=== PATIENT | female | born 1980 | race Asian ===

== ENCOUNTER 2020-06-12 19:11 | Emergency (ER) | payer BC ==
[~2020-06-12] VITALS: Ht 157.5 cm; Wt 56.4 kg
--- NOTE | 2020-06-12 19:53 | NUR ---
PT STATES HAVING SOME PALPITATIONS AND INDIGESTION SINCE HAVING CHEST PAIN A FEW DAYS AGO ACCOMPANIED BY SOME HTN. ACS PROTOCOL ORDERED
[2020-06-12 19:56] LABS: URINE HCG NEGATIVE (NEG)
[2020-06-12 19:57] LABS: CLARITY,URINE CLEAR (Clear); GLUCOSE, URINE NEGATIVE (Neg); KETONES,URINE NEGATIVE (Neg); LEUKOCYTE ESTERASE ,URINE TRACE (Neg); NITRITES, URINE NEGATIVE (Neg); OCCULT BLOOD,URINE TRACE-INTACT (Neg); PH,URINE 5.5 (4.8-8.0); PROTEIN,URINE NEGATIVE (Neg); UROBILINOGEN,URINE 0.2 E.U/dL (0.2-1.0)
[2020-06-12 20:02] LABS: UA COLLECTION TYPE CLN CATCH MIDSTREAM
[2020-06-12 20:03] LABS: BACTERIA,URINE FEW /HPF (Neg); COLOR,URINE Straw (Yellow); RBC,URINE 0-2 /HPF (0-2); SQUAMOUS EPITHELIAL CELL,UR FEW /LPF (FEW); WBC,URINE 0-4 /HPF (0-4)
[2020-06-12 20:04] LABS: BASOPHILS # (AUTO) 0.1 X10'3 (0-0.2); BASOPHILS % (AUTO) 0.8 % (0-1); EOSINOPHILS # (AUTO) 0.4 X10'3 (0-0.9); EOSINOPHILS % (AUTO) 4.6 % (0-6); HEMATOCRIT 41.8 % (35.0-45.0); HEMOGLOBIN 14.1 g/dl (12.0-16.0); LYMPHOCYTES # (AUTO) 2.3 X10'3 (1.1-4.8); LYMPHOCYTES % (AUTO) 23.9 % (21-51); MEAN CORPUSCULAR HEMOGLOBIN 29.2 PG (27.0-31.0); MEAN CORPUSCULAR HGB CONC 33.7 g/dL (33.0-36.5); MEAN CORPUSCULAR VOLUME 86.4 FL (78-98); MEAN PLATELET VOLUME 7.6 FL (7.4-10.4); MONOCYTES # (AUTO) 0.6 X10'3 (0-0.9); MONOCYTES % (AUTO) 6.4 % (2-12); NEUTROPHILS # (AUTO) 6.1 X10'3 (1.8-7.7); NEUTROPHILS % (AUTO) 64.3 % (42-75); PLATELET COUNT 369 X10'3 (140-440); RED BLOOD COUNT 4.84 X10'6 (4.20-5.60); RED CELL DISTRIBUTION WIDTH 13.2 % (11.5-14.5); WHITE BLOOD COUNT 9.4 X10'3 (4.5-11.0)
[2020-06-12 20:08] LABS: ALANINE AMINOTRANSFERASE 30 U/L (12-78); ALBUMIN 4.4 G/DL (3.4-5.0); ALBUMIN/GLOBULIN RATIO 1.1 (1.1-1.5); ALKALINE PHOSPHATASE 74 IU/L (46-116); ANION GAP 11 (8-16); ASPARTATE AMINO TRANSFERASE 25 U/L (10-37); BILIRUBIN,TOTAL 0.3 MG/DL (0.1-1.0); BLOOD UREA NITROGEN 7 MG/DL (7-18); BUN/CREATININE RATIO 10.6 (6.6-38.0); CALCIUM 8.8 MG/DL (8.5-10.1); CHLORIDE 101 MMOL/L (99-107); CREATININE 0.66 MG/DL (0.40-0.90); GLUCOSE 94 MG/DL (70-104); POTASSIUM 3.4 MMOL/L (3.5-5.1); SODIUM 139 MMOL/L (135-145); TOTAL CARBON DIOXIDE 26.6 MMOL/L (24-32); TOTAL PROTEIN 8.5 G/DL (6.4-8.2); eGFR > 90 ML/MIN
[2020-06-12 20:17] LABS: TROPONIN I < 0.04 NG/ML (0.0-0.05)
[2020-06-12 20:44] LABS: D-DIMER 0.26 MG/L FEU (0-0.50)
[2020-06-12 21:40] VITALS: BP 165/121
== END 2020-06-12 21:43 | disposition home or self-care (01) ==
LOC: ER 19:13
DX: G44.209 Tension-type headache, unspecified, not intractable (principal); I10 Essential (primary) hypertension; R07.89 Other chest pain; R06.02 Shortness of breath; M54.2 Cervicalgia
CPT/HCPCS: 36415; 71045; 80053; 81001; 81025; 83880; 84443; 84484; 85025; 85379; 87088; 93005; 99285

== ENCOUNTER 2020-08-20 09:58 | Emergency (ER) | payer BC ==
[~2020-08-20] VITALS: Ht 157.5 cm; Wt 54.1 kg
[2020-08-20] MEDS ORDERED: normal saline 1000ML IV soln IVB ONE (11:40)
[2020-08-20] MEDS ORDERED: proCHLORperazine 10 MG/2 ml inj IV ONE (11:40)
[2020-08-20] MEDS ORDERED: diazepam inj 5 MG/ML inj. IV ONE (11:40)
[2020-08-20 12:06] VITALS: BP 149/104
[2020-08-20] MEDS ORDERED: ondansetron/PF 4mg/2ml inj IV ONE (12:15)
== END 2020-08-20 13:37 | disposition home or self-care (01) ==
LOC: ER 09:58
DX: M54.12 Radiculopathy, cervical region (principal); R53.1 Weakness; M54.2 Cervicalgia
CPT/HCPCS: 93005; 96361; 96374; 96375; 99284; J2405; J3360; J7030